=== PATIENT | male | born 1970 | race African-American/Black ===

== ENCOUNTER → 2019-07-01 11:03 | Outpatient (CLI) | payer BC | END | disposition home or self-care (01) | LOC: D.MRI 11:03 | PROVIDERS: ATTEND Nurse Practitioner | DX: M25.512 Pain in left shoulder (principal) ==

== ENCOUNTER → 2019-09-20 07:51 | Outpatient (CLI) | payer BC | END | disposition home or self-care (01) | LOC: D.MRI 07:51 | PROVIDERS: ATTEND Nurse Practitioner Family | DX: M54.12 Radiculopathy, cervical region (principal) ==

== ENCOUNTER 2020-03-22 16:48 | Emergency (ER) | payer BC ==
[~2020-03-22] VITALS: Ht 177.8 cm; Wt 109.1 kg
[2020-03-22 17:37] VITALS: Ht 177.8 cm; Wt 109.1 kg
[2020-03-22] MEDS ORDERED: NEURONTIN 300300 MG PO (17:39)
[2020-03-22] MEDS ORDERED: MOBIC7.5 MG PO (17:39)
[2020-03-22] MEDS ORDERED: NEXIUM40 MG PO (17:39)
[2020-03-22] MEDS ORDERED: CYCLOBENZAPRINE10 MG PO (17:39)
[2020-03-22] MEDS ORDERED: RESTORIL15 MG PO (17:41)
[2020-03-22] MEDS ORDERED: VOLTAREN75 MG PO (21:32)
[2020-03-22] MEDS ORDERED: BACLOFEN20 M1 PO (21:32)
[2020-03-22 22:38] VITALS: BP 157/84
== END 2020-03-22 22:10 | disposition home or self-care (01) ==
LOC: D.ER 16:48
DX: M25.511 Pain in right shoulder (principal); M79.641 Pain in right hand; W19.XXXA Unspecified fall, initial encounter; Y93.9 Activity, unspecified; Y92.9 Unspecified place or not applicable; K21.9 Gastro-esophageal reflux disease without esophagitis